=== PATIENT | female | born 1995 | race Two or more races ===

== ENCOUNTER 2023-09-26 08:47 | Emergency (ER) | payer OTHER ==
[~2023-09-26] VITALS: Ht 152.4 cm; Wt 59.1 kg
[2023-09-26] MEDS: KETOROLAC 30 MG/ML 1ML VIAL IV ONE (09:19)
[2023-09-26] MEDS: ONDANSETRON 4MG 2ML VIAL IV ONE (09:20)
[2023-09-26 09:28] LABS: BASO % 0.4 % (0.0-1.0); EOS # 0.2 10^3/uL (0.0-0.5); EOS % 1.9 % (0.0-3.0); HEMATOCRIT 38.6 % (36.0-47.0); HEMOGLOBIN 13.2 g/dl (12.0-15.5); LYMPH % 38.3 % (24.0-44.0); MEAN CORPUSCULAR HEMOGLOBIN 30.3 pg (27.0-33.0); MEAN CORPUSCULAR HGB CONC 34.2 g/dl (32.0-36.5); MEAN CORPUSCULAR VOLUME 88.7 fl (80.0-96.0); MONO # 0.6 10^3/uL (0.0-0.8); MONO % 8.2 % (2.0-8.0); NEUTROPHILS # 3.9 10^3/uL (1.5-8.5); NEUTROPHILS % 50.9 % (36.0-66.0); PLATELET COUNT, AUTOMATED 300 10^3/uL (150-450); RED BLOOD COUNT 4.35 10^6/uL (4.00-5.40); WHITE BLOOD COUNT 7.7 10^3/uL (4.0-10.0)
[2023-09-26 09:53] LABS: ALBUMIN 3.6 G/DL (3.2-5.2); ALKALINE PHOSPHATASE 65 U/L (46-116); ALT/SGPT 18 U/L (7.0-40); AST/SGOT 24 U/L (<34); BILIRUBIN,TOTAL 0.6 MG/DL (0.3-1.2); BLOOD UREA NITROGEN 12 MG/DL (9-23); CALCIUM LEVEL 8.7 MG/DL (8.5-10.1); CARBON DIOXIDE LEVEL 19 MMOL/L (20-31); CHLORIDE LEVEL 108 MMOL/L (98-107); CREATININE FOR GFR 0.68 MG/DL (0.55-1.30); GLOMERULAR FILTRATION RATE > 60.0 (>60); GLUCOSE, FASTING 137 MG/DL (60-100); POTASSIUM SERUM 3.8 MMOL/L (3.5-5.1); SODIUM LEVEL 138 MMOL/L (136-145); TOTAL PROTEIN 6.8 G/DL (5.7-8.2)
[2023-09-26] MEDS ORDERED: KETO10TAB PO (12:52)
[2023-09-26] MEDS ORDERED: ONDA4TAB6 PO (12:52)
[2023-09-26] MEDS: ACETAMINOPHEN 500 MG TAB PO ONE (12:59)
[2023-09-26] MEDS ORDERED: BACT800T5 PO (13:37)
[2023-09-26] MEDS: BACTRIM 160MG/800MG DS TAB PO ONE (14:00)
[2023-09-26 14:01] VITALS: BP 96/55; TEMP 99.3; O2SAT 97
== END 2023-09-26 14:03 | disposition home or self-care (01) ==
LOC: M ED 08:47
DX: R10.32 Left lower quadrant pain (principal); R11.2 Nausea with vomiting, unspecified; Z79.899 Other long term (current) drug therapy
CPT/HCPCS: 74176; 80053; 81001; 84702; 85025; 87088; 87186; 96374; 96375; 99284; J1885; J2405

== ENCOUNTER → 2023-12-22 | Outpatient (REF) | payer OTHER ==
[~2023-12-22] MED LIST: ACET-897 PO; BACT800T5 PO; CEFD300CAP PO; IBUP-1114 PO; KETO10TAB PO; ONDA-282 PO
== END ==
LOC: M SMT 12:44
PROVIDERS: ATTEND Urology
DX: N20.1 Calculus of ureter (principal)

== ENCOUNTER 2024-01-20 06:55 | Day surgery (SDC) | payer OTHER ==
[~2024-01-20] VITALS: Ht 160 cm; Wt 68.0 kg
[~2024-01-20 06:55] MED LIST changes: +KETAMINE HCL 200MG/20ML VIAL As Ordered ONE; +LIDOCAINE 2% 100MG/5ML SDV (FOR ANES.) As Ordered ONE; +MIDAZOLAM INJ 2MG/2ML VIAL As Ordered ONE; +ONDANSETRON 4MG 2ML VIAL As Ordered ONE; +propofoL 200 MG/20 ML VIAL As Ordered ONE
[2024-01-20] MEDS ORDERED: LR 1,000 ML IV SCH (07:30)
[2024-01-20] MEDS: ceFAZolin SOD 2 GM in IV 1 EA IV ONE (09:11)
[2024-01-20] MEDS ORDERED: KETOROLAC 60MG 2ML VIAL As Ordered ONE (09:26)
[2024-01-20 11:32] VITALS: BP 102/63; TEMP 98; O2SAT 99
== END 2024-01-20 11:44 | disposition home or self-care (01) ==
LOC: M SDC 06:55
PROVIDERS: ATTEND Urology
DX: N20.1 Calculus of ureter (principal)
CPT/HCPCS: 50590; 74018; 81025; J0690; J1885; J2250; J2405

== ENCOUNTER → 2024-02-07 | Outpatient (CLI) | payer OTHER ==
[~2024-02-07] MED LIST changes: -KETAMINE HCL 200MG/20ML VIAL As Ordered ONE; -LIDOCAINE 2% 100MG/5ML SDV (FOR ANES.) As Ordered ONE; -MIDAZOLAM INJ 2MG/2ML VIAL As Ordered ONE; -ONDANSETRON 4MG 2ML VIAL As Ordered ONE; -propofoL 200 MG/20 ML VIAL As Ordered ONE
== END ==
LOC: M RAD 10:38
PROVIDERS: ATTEND Urology
DX: N20.1 Calculus of ureter (principal)